=== PATIENT | male | born 1955 | race Native Hawaiian/Other Pacific Islander ===

== ENCOUNTER 2020-09-06 12:43 | Outpatient (CLI) | payer OTHER | END 2020-09-06 22:04 | disposition home or self-care (01) | LOC: RESP 12:43 | PROVIDERS: ATTEND Specialist | DX: R56.1 Post traumatic seizures (principal) ==

== ENCOUNTER 2020-10-25 14:57 | Outpatient (CLI) | payer OTHER | END 2020-10-25 21:38 | disposition home or self-care (01) | LOC: RAD 14:57 | PROVIDERS: ATTEND Specialist | DX: R51.9 Headache, unspecified (principal); L98.8 Other specified disorders of the skin and subcutaneous tissue ==

== ENCOUNTER 2021-01-25 10:24 | Outpatient (CLI) | payer OTHER ==
[2021-01-25 10:42] LABS: PLATELET COUNT 154 K/uL (142-355)
[2021-01-25 11:08] LABS: POTASSIUM 4.1 mmol/L (3.6-5.2)
== END 2021-01-25 22:36 | disposition home or self-care (01) ==
LOC: LABW 10:24
PROVIDERS: ATTEND Specialist
DX: R56.1 Post traumatic seizures (principal)
CPT/HCPCS: 36415; 80053; 80185; 85027

== ENCOUNTER 2021-09-05 15:45 | Outpatient (CLI) | payer OTHER | END 2021-09-05 18:56 | disposition home or self-care (01) | LOC: US 15:45 | PROVIDERS: ATTEND Podiatrist | DX: M79.604 Pain in right leg (principal) ==